=== PATIENT | male | born 1955 | race Asian ===

== ENCOUNTER 2019-03-24 10:48 | Outpatient (CLI) | payer BC, OTHER ==
[2019-03-24] MEDS ORDERED: CEFD300C37 PO (11:17)
[2019-03-24] MEDS ORDERED: EMPA25TA PO (11:17)
[2019-03-24] MEDS ORDERED: METO25TA35 PO (11:17)
[2019-03-24] MEDS ORDERED: PANT40TA5 PO (11:17)
[2019-03-24] MEDS ORDERED: PRAV80TA2 PO (11:17)
[2019-03-24] MEDS ORDERED: MONT10TA6 PO (11:17)
[2019-03-24] MEDS ORDERED: LINA5TAB PO (11:17)
[2019-03-24] MEDS ORDERED: CLOR3.75 PO (11:17)
== END 2019-03-24 23:59 | disposition home or self-care (01) ==
LOC: STAR 10:48
PROVIDERS: ATTEND Orthopaedic Surgery
DX: Z02.9 Encounter for administrative examinations, unspecified (principal)

== ENCOUNTER 2019-04-04 05:40 | Observation (INO) | payer BC, OTHER ==
[~2019-04-04] VITALS: Ht 167.6 cm; Wt 113.8 kg
[~2019-04-04 05:40] MED LIST: CEFD300C37 PO; CLOR3.75 PO; EMPA25TA PO; LINA5TAB PO; METO25TA35 PO; MONT10TA6 PO; PANT40TA5 PO; PRAV80TA2 PO
[2019-04-04] MEDS ORDERED: LACTATED RINGERS 1,000 ML IV SCH (06:12)
[2019-04-04] MEDS ORDERED: VANCOMYCIN PMX 1GM/200ML 200 ML IV STA (06:37)
[2019-04-04] MEDS ORDERED: VANCOMYCIN 1,000 MG ONE (06:56)
[2019-04-04] MEDS ORDERED: KETOROLAC 60 MG/2 ML ONE (06:56)
[2019-04-04] MEDS ORDERED: morphine SULFATE/PF 1 MG/ML, 10ML ONE (06:56)
[2019-04-04] MEDS ORDERED: ROPIvacaine/PF 0.2%, 20 ML ONE ×2 (06:56→06:57)
[2019-04-04] MEDS ORDERED: TRANEXAMIC ACID 100 MG/ML, 10ML ONE (06:56)
[2019-04-04] MEDS ORDERED: EPINEPHRINE 1 MG/ML, 1ML ONE (06:57)
[2019-04-04] MEDS ORDERED: BACITRACIN 50,000 UNIT ONE (06:57)
[2019-04-04] MEDS ORDERED: SODIUM CHLORIDE 0.9% 50 ML ONE (06:57)
[2019-04-04] MEDS ORDERED: MIDAZOLAM 1 MG/ML, 2ML ONE (06:59)
[2019-04-04] MEDS ORDERED: FENTANYL PF 250 MCG/5ML ONE (07:00)
[2019-04-04] MEDS ORDERED: LIDOCAINE 2% 100MG/5ML SYRINGE ONE (07:29)
[2019-04-04] MEDS ORDERED: morphine SULFATE 10 MG/ML, 1ML IVPush PRN (07:30)
[2019-04-04] MEDS ORDERED: DIPHENHYDRAMINE 50 MG CAPSULE PO PRN (07:30)
[2019-04-04] MEDS ORDERED: ACETAMINOPHEN 325 MG TABLET PO PRN ×2 (07:30→08:30)
[2019-04-04] MEDS ORDERED: LORazepam 2 MG/ML, 1ML IVPush PRN ×2 (07:30→08:30)
[2019-04-04] MEDS ORDERED: ONDANSETRON 2MG/ML, 2ML IVPush PRN (07:30)
[2019-04-04] MEDS ORDERED: ZOLPIDEM 5MG TABLET PO PRN (07:30)
[2019-04-04] MEDS ORDERED: DEXAMETHASONE 4 MG/ML, 1ML ONE (08:04)
[2019-04-04] MEDS ORDERED: PROPOFOL 10 MG/ML, 20ML ONE (08:04)
[2019-04-04] MEDS ORDERED: ONDANSETRON 2MG/ML, 2ML ONE (08:04)
[2019-04-04] MEDS ORDERED: FENTANYL PF 100 MCG/2ML ONE ×3 (08:04→10:00)
[2019-04-04] MEDS ORDERED: CEFAZOLIN 1,000 MG ONE (08:04)
[2019-04-04] MEDS ORDERED: LABETALOL 5MG/ML, 20ML IV PRN (08:30)
[2019-04-04] MEDS ORDERED: OXYcodone 5 MG/5 ML ORAL.SOL UDC PO PRN (08:30)
[2019-04-04] MEDS ORDERED: DIAZEPAM 5 MG/ML, 2ML IVPush PRN (08:30)
[2019-04-04] MEDS ORDERED: HYDROmorphone 2 MG/ML, 1ML IVPush PRN (08:30)
[2019-04-04] MEDS ORDERED: ONDANSETRON ODT 8 MG PO PRN (08:30)
[2019-04-04] MEDS ORDERED: hydrALAzine 20 MG/ML, 1ML IV PRN (08:30)
[2019-04-04] MEDS ORDERED: PROMETHAZINE 25 MG/ML, 1ML IV PRN (08:30)
[2019-04-04] MEDS ORDERED: METOPROLOL 1 MG/ML, 5ML IV PRN (08:30)
[2019-04-04] MEDS ORDERED: ONDANSETRON 2MG/ML, 2ML IV PRN (08:30)
[2019-04-04] MEDS ORDERED: OXYcodone 5 MG/5 ML ORAL.SOL UDC ONE (09:33)
[2019-04-04] MEDS: FENTANYL PF 100 MCG/2ML IV PRN ×2 (09:39→09:45)
[2019-04-04 10:59] VITALS: BP 134/79
[2019-04-04] MEDS: D5%-0.45% NACL 1,000 ML IV SCH ×2 (11:30→20:00)
[2019-04-04] MEDS: CEFDINIR 300 MG CAPSULE PO SCH (12:20)
[2019-04-04] MEDS: TRANEXAMIC ACID 1,000 MG in SODIUM CHLORIDE 0.9% 100 ML IV ONE ×2 (12:20→13:34)
[2019-04-04 12:50] VITALS: BP 145/72
[2019-04-04] MEDS: OXYcodone/APAP 7.5/325MG TABLET PO PRN ×2 (13:33→21:26)
[2019-04-04] MEDS: CEFAZOLIN PMX 2GM/50ML 50 ML IVPB SCH (15:55)
[2019-04-04 18:04] VITALS: BP 144/68
[2019-04-04] MEDS: METOPROLOL TARTRATE 25 MG TABLET PO SCH (18:04)
[2019-04-04 19:03] VITALS: BP 124/73
[2019-04-04] MEDS ORDERED: VANCOMYCIN PMX 1GM/200ML 200 ML IVPB ONE (19:30)
[2019-04-04] MEDS: PANTOPROZOLE 40MG TABLET PO SCH (19:47)
[2019-04-04] MEDS: MONTELUKAST 10 MG TABLET PO SCH ×2 (19:47→20:13)
[2019-04-04] MEDS ORDERED: PRAVASTATIN 40 MG TABLET PO SCH (21:00)
[2019-04-05] VITALS: BP 101/62
[2019-04-05] MEDS: D5%-0.45% NACL 1,000 ML IV SCH ×3 (00:38→10:39)
[2019-04-05 03:35] VITALS: BP 110/62
[2019-04-05] MEDS: OXYcodone/APAP 7.5/325MG TABLET PO PRN ×3 (05:22→14:13)
[2019-04-05] MEDS: METOPROLOL TARTRATE 25 MG TABLET PO SCH (05:26)
[2019-04-05 07:13] VITALS: BP 91/50
[2019-04-05] MEDS ORDERED: ASPIRIN 325 MG TABLET EC PO SCH ×2 (08:00→17:00)
[2019-04-05] MEDS: PANTOPROZOLE 40MG TABLET PO SCH (08:29)
[2019-04-05] MEDS: CEFAZOLIN PMX 2GM/50ML 50 ML IVPB SCH ×2 (08:29)
[2019-04-05] MEDS ORDERED: LINAGLIPTIN 5 MG TAB PO SCH (09:00)
[2019-04-05] MEDS ORDERED: DOCUSATE 100 MG CAPSULE PO SCH (09:00)
[2019-04-05] MEDS ORDERED: JARDIANCE 25 MG PO SCH (09:00)
[2019-04-05] MEDS ORDERED: CLORAZEPATE 7.5 MG TABLET PO SCH (09:00)
[2019-04-05] MEDS: CEFDINIR 300 MG CAPSULE PO SCH (10:39)
[2019-04-05 13:12] VITALS: BP 102/60
== END 2019-04-05 14:49 | disposition home or self-care (01) ==
LOC: OUT 05:40 → 4NE 10:55 → OUT 13:17 → DCLOUNGE 04-05 14:20
PROVIDERS: ADMIT Orthopaedic Surgery; ATTEND Orthopaedic Surgery
DX: M17.12 Unilateral primary osteoarthritis, left knee (principal); I10 Essential (primary) hypertension; E11.9 Type 2 diabetes mellitus without complications; K21.9 Gastro-esophageal reflux disease without esophagitis; Z79.899 Other long term (current) drug therapy; Z88.1 Allergy status to other antibiotic agents; Z87.11 Personal history of peptic ulcer disease
CPT/HCPCS: 27447; 73560; 82962; 96365; 96366; 96367; 97162; 97165; 97530; C1713; C1776; G0378; J0171; J0690; J1100; J1885; J2250; J2274; J2405; J2704; J2795; J3010; J3370; J7120

== ENCOUNTER 2019-05-05 15:00 | Outpatient (CLI) | payer OTHER | END 2019-05-05 23:59 | disposition home or self-care (01) | LOC: RAD 15:00 | PROVIDERS: ATTEND Orthopaedic Surgery | DX: M79.662 Pain in left lower leg (principal); M25.562 Pain in left knee ==